=== PATIENT | male | born 1965 | race Caucasian/White ===

== ENCOUNTER 2018-01-01 18:52 | Emergency (ER) | payer OTHER ==
[~2018-01-01] VITALS: Ht 180.3 cm; Wt 79.4 kg
[~2018-01-01 18:52] MED LIST: LEVAQUIN 500 M500 M2 PO; LIPITOR 20 MG T20 M1 PO; PRINIVIL10 MG PO
[2018-01-01] MEDS ORDERED: NOHOMEMEDICATIONS (19:00)
[2018-01-01 19:16] LABS: ABSOLUTE BASOPHILS 0.1 thou/uL (0.0-0.2); ABSOLUTE EOSINOPHILS 0.1 thou/uL (0.0-0.7); ABSOLUTE LYMPHOCYTES 2.7 thou/uL (0.8-5.3); ABSOLUTE MONOCYTES 0.7 thou/uL (0.0-1.2); ABSOLUTE NEUTROPHILS 8.7 thou/uL (1.6-8.1); BASOPHILS 0.9 %; EOSINOPHILS 1.1 %; HEMATOCRIT 48.3 % (42.0-52.0); HEMOGLOBIN 16.6 gm/dL (14.0-18.0); LYMPHOCYTES 22.1 %; MCH 31.4 pg (26.0-34.0); MCHC 34.4 g/dL (28.0-37.0); MCV 91.4 fL (80.0-100.0); MONOCYTES 5.6 %; MPV 8.5 fl. (7.2-11.1); NUCLEATED RBCS 0 /100WBC; PLATELET COUNT* 208 thou/uL (150-400); POLYS 70.3 %; RBC 5.29 mil/uL (4.50-6.00); RDW-CV 13.9 % (10.5-14.5); WBC 12.3 thou/uL (4.0-11.0)
[2018-01-01 19:28] LABS: ANION GAP 7 mmol/L (7-16); BUN 16 mg/dL (7-18); CALCIUM 8.4 mg/dL (8.5-10.1); CHLORIDE 105 mmol/L (98-107); CO2 26 mmol/L (21-32); GLUCOSE 103 mg/dL (70-99); POTASSIUM 3.6 mmol/L (3.5-5.1); SODIUM 138 mmol/L (136-145)
[2018-01-01 19:39] LABS: ALBUMIN 3.5 g/dL (3.4-5.0); ALKALINE PHOSPHATASE 95 U/L (46-116); LIPASE 180 U/L (73-393); MAGNESIUM 1.9 mg/dL (1.8-2.4); SGPT 23 U/L (30-65); TOTAL BILIRUBIN 0.2 mg/dL (<0.1-1.0); TOTAL PROTEIN 7.2 g/dL (6.4-8.2)
[2018-01-01 19:50] LABS: SGOT 20 U/L (15-37)
[2018-01-01 19:59] LABS: TROPONIN-I LEVEL <0.06 ng/mL (<0.06)
[2018-01-01 20:10] VITALS: BP 127/89
[2018-01-01 20:16] LABS: CK-MB MASS 0.3 ng/mL (<0.5-3.6); NT-PRO BRAIN NAT PEPTIDE 117 pg/mL (<300)
--- NOTE | 2018-01-02 12:56 | EKG ---
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
== END 2018-01-01 20:10 | disposition left against medical advice (07) ==
LOC: M.ERS 18:52
PROVIDERS: Family Medicine
DX: R07.9 Chest pain, unspecified (principal); I25.2 Old myocardial infarction; F17.210 Nicotine dependence, cigarettes, uncomplicated

== ENCOUNTER 2019-05-10 09:06 | Emergency (ER) | payer OTHER ==
[~2019-05-10] VITALS: Ht 182.9 cm; Wt 81.2 kg
[~2019-05-10 09:06] MED LIST changes: +NOHOMEMEDICATIONS
[2019-05-10] MEDS ORDERED: LISINOPRIL-HCT1 EACH PO (09:15)
[2019-05-10] MEDS ORDERED: LIPITOR40 MG PO (09:15)
[2019-05-10] MEDS ORDERED: ASA81BEC PO (09:15)
[2019-05-10] MEDS ORDERED: TOPROL XL25 MG PO (09:16)
[2019-05-10 09:19] LABS: URINE BILIRUBIN NEGATIVE (Negative); URINE BLOOD NEGATIVE (Negative); URINE CLARITY CLEAR; URINE COLOR YELLOW; URINE GLUCOSE-RANDOM NEGATIVE (Negative); URINE KETONES NEGATIVE (Negative); URINE LEUKOCYTES-REFLEX NEGATIVE (Negative); URINE NITRITE-REFLEX NEGATIVE (Negative); URINE PROTEIN NEGATIVE (Negative); URINE SPECIFIC GRAVITY <= 1.005 (1.005-1.030); URINE UROBILINOGEN 0.2 E.U./dl (0.2-1.0)
[2019-05-10] MEDS ORDERED: PROAIR HFA8.5 GM INH (09:30)
[2019-05-10 09:42] LABS: ABSOLUTE BASOPHILS 0.2 thou/uL (0.0-0.2); ABSOLUTE EOSINOPHILS 0.2 thou/uL (0.0-0.7); ABSOLUTE LYMPHOCYTES 2.7 thou/uL (0.8-5.3); ABSOLUTE MONOCYTES 0.7 thou/uL (0.0-1.2); ABSOLUTE NEUTROPHILS 7.3 thou/uL (1.6-8.1); BASOPHILS 1.4 %; EOSINOPHILS 1.6 %; HEMATOCRIT 48.4 % (42.0-52.0); HEMOGLOBIN 16.8 gm/dL (14.0-18.0); LYMPHOCYTES 24.4 %; MCH 31.7 pg (26.0-34.0); MCHC 34.7 g/dL (28.0-37.0); MCV 91.2 fL (80.0-100.0); MPV 8.9 fl. (7.2-11.1); NUCLEATED RBCS 0 /100WBC; PLATELET COUNT* 216 thou/uL (150-400); POLYS 66.6 %; RBC 5.31 mil/uL (4.50-6.00); RDW-CV 13.4 % (10.5-14.5); WBC 10.9 thou/uL (4.0-11.0)
[2019-05-10 09:53] LABS: CALCIUM 8.7 mg/dL (8.5-10.1); POTASSIUM 4.2 mmol/L (3.5-5.1)
[2019-05-10 09:57] LABS: ALBUMIN 3.5 g/dL (3.4-5.0); TOTAL BILIRUBIN 0.4 mg/dL (<0.1-1.0); TOTAL PROTEIN 7.5 g/dL (6.4-8.2)
[2019-05-10] MEDS ORDERED: NORCO 5-325 TA1 EAC1 PO (11:33)
[2019-05-10] MEDS ORDERED: ZOFRAN ODT4 MG DISSOLVE (11:33)
[2019-05-10 11:41] VITALS: BP 119/76
--- NOTE | 2019-05-10 16:17 | EKG ---
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 05/10/19 1616 936 5 Ariel Coburn MD, FACC /EPI
== END 2019-05-10 11:41 | disposition home or self-care (01) ==
LOC: M.ERS 09:06
PROVIDERS: Emergency Medicine Emergency Medical Services
DX: R10.11 Right upper quadrant pain (principal); R10.31 Right lower quadrant pain; R19.7 Diarrhea, unspecified; F17.210 Nicotine dependence, cigarettes, uncomplicated; Z90.49 Acquired absence of other specified parts of digestive tract

== ENCOUNTER 2019-05-19 19:38 | Emergency (ER) | payer OTHER ==
[~2019-05-19] VITALS: Ht 182.9 cm; Wt 80.7 kg
[~2019-05-19 19:38] MED LIST changes: +ASA81BEC PO; +LIPITOR40 MG PO; +LISINOPRIL-HCT1 EACH PO; +NORCO 5-325 TA1 EAC1 PO; +PROAIR HFA8.5 GM INH; +TOPROL XL25 MG PO; +ZOFRAN ODT4 MG DISSOLVE
[2019-05-19 20:05] LABS: ABSOLUTE BASOPHILS 0.2 thou/uL (0.0-0.2); ABSOLUTE EOSINOPHILS 0.3 thou/uL (0.0-0.7); ABSOLUTE LYMPHOCYTES 3.3 thou/uL (0.8-5.3); ABSOLUTE MONOCYTES 1.1 thou/uL (0.0-1.2); ABSOLUTE NEUTROPHILS 8.3 thou/uL (1.6-8.1); BASOPHILS 1.2 %; EOSINOPHILS 2.3 %; HEMATOCRIT 46.5 % (42.0-52.0); HEMOGLOBIN 16.5 gm/dL (14.0-18.0); MCH 32.4 pg (26.0-34.0); MCHC 35.6 g/dL (28.0-37.0); MCV 90.9 fL (80.0-100.0); MONOCYTES 8.5 %; MPV 9.4 fl. (7.2-11.1); NUCLEATED RBCS 0 /100WBC; PLATELET COUNT* 218 thou/uL (150-400); RBC 5.11 mil/uL (4.50-6.00); RDW-CV 13.8 % (10.5-14.5); WBC 13.2 thou/uL (4.0-11.0)
[2019-05-19 20:09] LABS: URINE BILIRUBIN NEGATIVE (Negative); URINE BLOOD NEGATIVE (Negative); URINE CLARITY CLEAR; URINE COLOR YELLOW; URINE GLUCOSE-RANDOM NEGATIVE (Negative); URINE KETONES NEGATIVE (Negative); URINE LEUKOCYTES-REFLEX NEGATIVE (Negative); URINE NITRITE-REFLEX NEGATIVE (Negative); URINE PROTEIN NEGATIVE (Negative); URINE SPECIFIC GRAVITY 1.025 (1.005-1.030); URINE UROBILINOGEN 0.2 E.U./dl (0.2-1.0)
[2019-05-19 20:23] LABS: CALCIUM 8.5 mg/dL (8.5-10.1); CREATININE 1.1 mg/dL (0.6-1.3); POTASSIUM 3.9 mmol/L (3.5-5.1)
[2019-05-19 20:27] LABS: ALBUMIN 3.2 g/dL (3.4-5.0); TOTAL BILIRUBIN 0.2 mg/dL (<0.1-1.0)
[2019-05-19 20:27] LABS: AMP/METHAMP Negative (Negative); BARBITURATES Negative (Negative); BENZODIAZEPINES Negative (Negative); COCAINE Negative (Negative); METHADONE Negative (Negative); OPIATES POSITIVE (Negative); PCP Negative (Negative); THC Negative (Negative)
[2019-05-19 21:56] VITALS: BP 120/80
--- NOTE | 2019-05-20 10:41 | EKG ---
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 : 1965 Requested By: Mirtha Hudson Order Number: [id number] MD: Ariel Coburn Measurements Intervals [place] Rate: 88 P: 63 TN: 181 QRS: 84 QRSD: 84 T: 42 QT: 378 QTc: 458 Interpretive Statements Sinus rhythm ST elev, probable normal early repol pattern Compared to ECG 05/10/2019 09:36:32 No significant changes Electronically Signed On 05-20-2019 10:40:44 CANARY BREEDER by Ariel Coburn [email or web address] <ELECTRONICALLY SIGNED> By: Ariel Coburn MD, [facility] 05/20/19 1040 55 55 Ariel Coburn MD, FACC /EPI
== END 2019-05-19 21:56 | disposition home or self-care (01) ==
LOC: M.ERS 19:38
PROVIDERS: Personal Emergency Response Attendant
DX: K59.00 Constipation, unspecified (principal); F17.210 Nicotine dependence, cigarettes, uncomplicated; Z90.49 Acquired absence of other specified parts of digestive tract; Z79.899 Other long term (current) drug therapy

== ENCOUNTER 2019-10-05 15:51 | Emergency (ER) | payer OTHER ==
[~2019-10-05] VITALS: Ht 182.9 cm; Wt 81.7 kg
[2019-10-05] MEDS ORDERED: CENTANY30 GM TOP (16:55)
[2019-10-05] MEDS ORDERED: AUGMENTIN 875-1 EACH PO (16:55)
[2019-10-05 17:02] VITALS: BP 126/81
== END 2019-10-05 17:03 | disposition home or self-care (01) ==
LOC: M.ERS 15:51
DX: S50.812A Abrasion of left forearm, initial encounter (principal); L08.9 Local infection of the skin and subcutaneous tissue, unspecified; I21.9 Acute myocardial infarction, unspecified; F17.210 Nicotine dependence, cigarettes, uncomplicated; W55.03XA Scratched by cat, initial encounter; Y93.89 Activity, other specified; Y92.89 Other specified places as the place of occurrence of the external cause; Y99.8 Other external cause status

== ENCOUNTER 2020-03-07 12:48 | Emergency (ER) | payer OTHER ==
[~2020-03-07] VITALS: Ht 182.9 cm; Wt 81.7 kg
[~2020-03-07 12:48] MED LIST changes: +AUGMENTIN 875-1 EACH PO; +CENTANY30 GM TOP
[2020-03-07 13:02] VITALS: BP 116/83
[2020-03-07] MEDS ORDERED: LISINOPRIL2.5 MG PO (13:05)
[2020-03-07] MEDS ORDERED: PREDNISONE 20 M20 M1 PO (14:46)
[2020-03-07] MEDS ORDERED: ZPAK PO (14:46)
--- NOTE | 2020-03-09 16:31 | EKG ---
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: [facility] : 1965 Requested By: Jimmy Bermudez Order Number: [id number] Justyn SMITH: Nik Goodwin Measurements Intervals [place] Rate: 125 P: 84 [place]: 160 QRS: 87 QRSD: 85 T: 23 QT: 309 QTc: 446 Interpretive Statements Sinus tachycardia Compared to ECG 05/19/2019 19:56:55 Sinus rate has increased ST (T wave) deviation no longer present Electronically Signed On 03-09-2020 16:31:25 CONTACT CENTER ANALYST by Nik Goodwin [email or web address] <ELECTRONICALLY SIGNED> By: Nik Goodwin MD, [facility] 03/09/20 1631 1309 1309 Nik Goodwin MD, [facility] /EPI
== END 2020-03-07 14:51 | disposition home or self-care (01) ==
LOC: M.ERS 12:48
DX: J40 Bronchitis, not specified as acute or chronic (principal); F17.210 Nicotine dependence, cigarettes, uncomplicated; Z90.49 Acquired absence of other specified parts of digestive tract

== ENCOUNTER 2020-08-14 11:32 | Emergency (ER) | payer OTHER ==
[~2020-08-14] VITALS: Ht 182.9 cm; Wt 81.7 kg
[~2020-08-14 11:32] MED LIST changes: +LISINOPRIL2.5 MG PO; +PREDNISONE 20 M20 M1 PO; +ZPAK PO
[2020-08-14 13:25] LABS: ABSOLUTE BASOPHILS 0.1 thou/uL (0.0-0.2); ABSOLUTE EOSINOPHILS 0.1 thou/uL (0.0-0.7); ABSOLUTE LYMPHOCYTES 2.3 thou/uL (0.8-5.3); ABSOLUTE MONOCYTES 0.8 thou/uL (0.0-1.2); ABSOLUTE NEUTROPHILS 6.2 thou/uL (1.6-8.1); BASOPHILS 0.7 %; EOSINOPHILS 1.3 %; HEMATOCRIT 48.1 % (42.0-52.0); HEMOGLOBIN 16.4 gm/dL (14.0-18.0); LYMPHOCYTES 24.4 %; MCH 31.2 pg (26.0-34.0); MCHC 34.1 g/dL (28.0-37.0); MCV 91.6 fL (80.0-100.0); MPV 8.3 fl. (7.2-11.1); NUCLEATED RBCS 0 /100WBC; PLATELET COUNT* 210 thou/uL (150-400); POLYS 65.6 %; RBC 5.25 mil/uL (4.50-6.00); RDW-CV 14.8 % (10.5-14.5); WBC 9.5 thou/uL (4.0-11.0)
[2020-08-14 13:37] LABS: CALCIUM 8.7 mg/dL (8.5-10.1); POTASSIUM 4.1 mmol/L (3.5-5.1)
[2020-08-14 13:45] LABS: ALBUMIN 3.6 g/dL (3.4-5.0); TOTAL BILIRUBIN 0.5 mg/dL (<0.1-1.0); TOTAL PROTEIN 7.7 g/dL (6.4-8.2)
[2020-08-14 15:00] VITALS: BP 129/86
--- NOTE | 2020-08-14 15:22 | EKG ---
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 : 1965 Requested By: Rojas Ferrell Order Number: [id number] Justyn MD: Ariel Coburn Measurements Intervals [place] Rate: 93 P: 73 MA: 166 QRS: 85 QRSD: 86 T: 52 QT: 370 QTc: 461 Interpretive Statements Sinus rhythm septal q waves ST elevation suggests early repolarization Baseline wander in lead(s) III Compared to ECG 03/07/2020 13:09:13 Sinus tachycardia no longer present Electronically Signed On 08-14-2020 15:22:12 CDT by Ariel Coburn [email or web address] <ELECTRONICALLY SIGNED> By: Ariel Coburn MD, FAC 08/14/20 1522 1206 1206 Ariel Coburn MD, [facility] /EPI
== END 2020-08-14 15:00 | disposition home or self-care (01) ==
LOC: M.ERS 11:32
PROVIDERS: Emergency Medicine
DX: R42 Dizziness and giddiness (principal); R53.1 Weakness; I10 Essential (primary) hypertension; F17.210 Nicotine dependence, cigarettes, uncomplicated; Z90.49 Acquired absence of other specified parts of digestive tract

== ENCOUNTER 2021-04-28 16:03 | Emergency (ER) | payer OTHER | END 2021-04-28 16:36 | disposition left against medical advice (07) | LOC: M.ERS 16:03 | DX: Z01.84 Encounter for antibody response examination (principal); Z53.21 Procedure and treatment not carried out due to patient leaving prior to being seen by health care provider ==